=== PATIENT | male | born 1965 | race Hispanic/Latino ===

== ENCOUNTER → 2017-06-25 | Day surgery (SDC) | payer OTHER ==
[2017-06-20 12:50] LABS: BASOPHILS # (AUTO) 0.1 (0.0-0.1); BASOPHILS % 0.7 % (0.0-1.0); EOSINOPHILS # (AUTO) 0.3 (0.0-0.4); EOSINOPHILS % 3.3 % (0.0-6.0); HEMATOCRIT 44.4 % (38.2-49.6); HEMOGLOBIN 15.7 g/dL (14.0-18.0); LYMPHOCYTES # (AUTO) 3.4 (1.0-3.2); LYMPHOCYTES % 34.9 % (18.0-39.1); MEAN CORPUSCULAR HEMOGLOBIN 31.2 pg (28-32); MEAN CORPUSCULAR HGB CONC 35.4 g/dL (31-35); MEAN CORPUSCULAR VOLUME 88.3 fL (81-99); MONOCYTES # (AUTO) 1.2 (0.2-0.8); MONOCYTES % 12.2 % (4.4-11.3); NEUTROPHILS # (AUTO) 4.7 (2.1-6.9); NEUTROPHILS % 48.6 % (38.7-80.0); PLATELET COUNT 366 x10e3/uL (140-360); RED BLOOD COUNT 5.03 x10e6/uL (4.3-5.7); RED CELL DISTRIBUTION WIDTH 13.5 % (11.7-14.4)
[2017-06-20 13:16] LABS: ANION GAP 12.6 mmol/L (8-16); BLOOD UREA NITROGEN 11 mg/dL (7-26); BUN/CREATININE RATIO 14 (6-25); CARBON DIOXIDE 25 mmol/L (22-29); CHLORIDE 107 mmol/L (98-107); CREATININE, SERUM 0.81 mg/dL (0.72-1.25); EST GLOMERULAR FILTRATION RATE > 60 ML/MIN (60-); GLUCOSE 97 mg/dL (74-118); POTASSIUM 4.6 mmol/L (3.5-5.1); SODIUM 140 mmol/L (136-145)
[~2017-06-25] MED LIST: ATORVASTATIN CA20 MG; BUPIVACAINE 0.25%/EPI 30ML SDV INJ ONE; CEFAZOLIN SOD 1 GM/NS 50ML 50 ML IV ONE; DEXAMETHASONE SOD PHOS INJ 4 MG/ML VIAL IV ONE; FENTANYL CITRATE/PF 100MCG/2 ML INJ ONE; LIDOCAINE HCL 2% LOCAL INJ 5 ML SDV VIAL INJ ONE; MIDAZOLAM HCL 2 MG/2 ML VIAL ONE; ONDANSETRON HCL INJ 2 MG/ML VIAL IV ONE; PRAVASTATIN SOD40 MG PO; PROPOFOL IV EMULSION 10 MG/ML 20 ML VIAL IV ONE; SEVOFLURANE INHAL SOLN 250 ML PEN BTL INH ONE; SYNTHROID150 MCG PO
--- NOTE | 2017-06-25 13:04 | Operative Report ---
DATE OF PROCEDURE: June 25, 2017 PREOPERATIVE DIAGNOSIS: Bilateral inguinal hernias. POSTOPERATIVE DIAGNOSIS: Bilateral inguinal hernias. PROCEDURE PERFORMED: Staged repair of bilateral inguinal hernias starting with the right side first, symptomatic. ANESTHESIA: General. ESTIMATED BLOOD LOSS: Minimal. DRAINS: None. COMPLICATIONS: None. ELEMENTARY SCHOOL DIRECTOR: OLESYA Fowler INDICATIONS AND FINDINGS: This patient is a 51-year-old male who had been complaining of pain in the right groin for several years, now becoming tender. Physical examination revealed bilateral groin hernias with the right side being larger than the left and symptomatic. INTRAOPERATIVE FINDINGS: A large direct defect with a blowout of the floor. No evidence of femoral herniation. No evidence of hernia sac. The UltraPro hernia system oval type was placed. DESCRIPTION OF PROCEDURE: With the patient lying on the operative table in the supine position, after administration of general anesthesia, he was prepped and draped for repair of a right inguinal hernia. Preemptive anesthesia was given with 0.25% Marcaine with epinephrine as an ilioinguinal nerve block and an incisional nerve block. A transverse groin incision was made, deepened through the skin, subcutaneous tissue, Indu fascia until the external oblique aponeurosis was identified. This was incised along the course of its fibers, transecting the external inguinal ring. Medial and lateral leaves were developed. The cord was mobilized at the level of the pubic tubercle and retracted away from the operative field by a Melvin drain. The cremaster veil was incised. An indirect hernia sac was not seen. A large direct defect with a blowout of the floor was obvious. It was sharply from the cord. Then the transversalis fascia was incised. Then the preperitoneal space was entered. A pocket was created using blunt dissection to accommodate the mesh. Then the UltraPro hernia system oval type was deployed with the underlay part of the mesh over the direct space and the overlay part of the mesh over the inguinal canal floor. A slit was made to accommodate the cord, and the mesh was secured to local tissues using a series of interrupted 2-0 Ethibond sutures. The wound was irrigated. Bleeding points were cauterized. Then the wound was closed in layers using 2-0 Vicryl for the external oblique aponeurosis, 2-0 catgut for the soft tissues, and the skin was closed using dc. Marcaine 0.25% with epinephrine was given to the skin incision in addition to the previously given local field block, for a total of 30 mL of Marcaine with epinephrine. Job#: [id number] EV
== END | disposition home or self-care (01) ==
LOC: OR 06:53
PROVIDERS: ATTEND Surgery
DX: K40.20 Bilateral inguinal hernia, without obstruction or gangrene, not specified as recurrent (principal); E03.9 Hypothyroidism, unspecified; Z01.810 Encounter for preprocedural cardiovascular examination; Z01.812 Encounter for preprocedural laboratory examination; Z85.71 Personal history of Hodgkin lymphoma; Z87.891 Personal history of nicotine dependence
CPT/HCPCS: 36415; 49505; 80048; 85025; 93005; C1781; J1100; J2001; J2250; J2405

== ENCOUNTER → 2017-07-18 | Day surgery (SDC) | payer OTHER ==
[~2017-07-18] MED LIST changes: +BUPIVACAINE 0.25% 30ML SDV INJ ONE; -BUPIVACAINE 0.25%/EPI 30ML SDV INJ ONE; -CEFAZOLIN SOD 1 GM/NS 50ML 50 ML IV ONE; -DEXAMETHASONE SOD PHOS INJ 4 MG/ML VIAL IV ONE; +DEXAMETHASONE SOD PHOS INJ 4 MG/ML VIAL ONE; +KETOROLAC TROMETHAMINE 30 MG/ML VIAL ONE; -ONDANSETRON HCL INJ 2 MG/ML VIAL IV ONE; +ONDANSETRON HCL INJ 2 MG/ML VIAL ONE; -PROPOFOL IV EMULSION 10 MG/ML 20 ML VIAL IV ONE; +PROPOFOL IV EMULSION 10 MG/ML 20 ML VIAL ONE; -SEVOFLURANE INHAL SOLN 250 ML PEN BTL INH ONE; +SEVOFLURANE INHAL SOLN 250 ML PEN BTL ONE
--- NOTE | 2017-07-18 09:50 | Operative Report ---
DATE OF PROCEDURE: July 18, 2017 PREOPERATIVE DIAGNOSIS: Left inguinal hernia. POSTOPERATIVE DIAGNOSIS: Left inguinal hernia. PROCEDURE PERFORMED: Repair of left inguinal hernia with Ultra Pro hernia system, oval type. BANDER AND CELLOPHANER HELPER MACHINE: OLESYA Fowler ESTIMATED BLOOD LOSS: Minimal. DRAINS: None. COMPLICATIONS: None. INDICATIONS AND FINDINGS: The patient is a 51-year-old male who is admitted now for completion of staged repair of bilateral inguinal hernia. He had repair of right inguinal hernia several weeks ago. INTRAOPERATIVE FINDINGS: Direct defect. DESCRIPTION OF PROCEDURE: With the patient lying on the operating table in the supine position and after administration of general anesthesia, he was prepped and draped for repair of a left inguinal hernia. Pre-emptive anesthesia was given and 0.25% Marcaine with epinephrine as an ilioinguinal nerve block and incisional nerve block. A transverse groin incision was made and deepened through the skin, subcutaneous tissue and Indu fascia until the external oblique aponeurosis was identified. This was incised along the course of the fibers transecting the external inguinal ring. Mid and lateral leads were developed. The cord was mobilized at the level of the pubic tubercle and retracted away from the operative field by a Laura drain. The cremaster veil was incised. An indirect hernia sac was searched for and none was found. The direct defect was seen. The transversalis fascia was incised. Then a pocket was created with blunt dissection to accommodate the Ultra Pro hernia system oval type mesh. The mesh was deployed with the underlay part of the mesh over the direct space and the overlay part of the mesh over the inguinal canal floor. A slit was made to accommodate the cord. Then the mesh was secured to local tissues using a series of interrupted 2 Ethibond suture. The wound was irrigated. Bleeding points were cauterized. Then the wound was closed in layers using 2-0 Vicryl for the external oblique aponeurosis, 2-0 plain catgut for the soft tissues, and the skin was closed using dc. Then 0.25% Marcaine with epinephrine was given as a local block at the end of the case. The patient tolerated the procedure well, and taken to the recovery room in stable condition. Job#: [id number] RI
== END | disposition home or self-care (01) ==
LOC: OR 06:30
PROVIDERS: ATTEND Surgery
DX: K40.90 Unilateral inguinal hernia, without obstruction or gangrene, not specified as recurrent (principal); E78.5 Hyperlipidemia, unspecified; R06.83 Snoring; E03.9 Hypothyroidism, unspecified; Z85.72 Personal history of non-Hodgkin lymphomas; Z87.891 Personal history of nicotine dependence
CPT/HCPCS: 49505; C1781; J1100; J1885; J2001; J2250; J2405

== ENCOUNTER → 2017-11-29 | Day surgery (SDC) | payer BC ==
[~2017-11-29] MED LIST changes: -BUPIVACAINE 0.25% 30ML SDV INJ ONE; -DEXAMETHASONE SOD PHOS INJ 4 MG/ML VIAL ONE; +HYOSCYAMINE SULFATE 0.5 MG/ML AMP ONE; -KETOROLAC TROMETHAMINE 30 MG/ML VIAL ONE; -LIDOCAINE HCL 2% LOCAL INJ 5 ML SDV VIAL INJ ONE; -MIDAZOLAM HCL 2 MG/2 ML VIAL ONE; +MIDAZOLAM HCL 5MG/ML 2ML VIAL ONE; -ONDANSETRON HCL INJ 2 MG/ML VIAL ONE; -PROPOFOL IV EMULSION 10 MG/ML 20 ML VIAL ONE; +PROPOFOL IV EMULSION 10 MG/ML 50 ML VIAL ONE; -SEVOFLURANE INHAL SOLN 250 ML PEN BTL ONE
--- NOTE | 2017-11-29 14:55 | Operative Report ---
DATE OF PROCEDURE: November 29, 2017 REFERRING PHYSICIAN: Dr. Dawit Morrison. PROCEDURE PERFORMED: Colonoscopy and polypectomy. INDICATIONS FOR COLONOSCOPY: Colorectal cancer screening. MEDICATION: Patient was done under MAC. Please see anesthesiologist's note. PROCEDURE: With patient in the left lateral decubitus position, flexible fiberoptic Olympus colonoscope was inserted into the rectum with ease and advanced all the way to the cecum. One polyp was hot biopsied from the cecum. Polypectomy site was prophylactically hemoclipped. The ascending colon appeared to be within normal limits. Three polyps were hot biopsied. Two polyps were snared from the transverse colon. One polyp that was sessile suspicious for carcinoid tumor was snared from the descending colon and polypectomy site was tattooed. The rest of the descending appeared to be within normal limits. Two polyps were snared from the sigmoid colon. The rectum appeared to be within normal limits. The scope was then retroflexed into the distal rectum and small internal hemorrhoids were noted, none of which was actively bleeding. The scope was then straightened out and was subsequently withdrawn. Patient tolerated the procedure well. IMPRESSION: 1. Cecal polyps, hot biopsied, prophylactically hemoclipped. 2. Transverse colon polyps times 5. Two snared and 3 hot biopsied. 3. Descending colon polyp snared and tattooed. Rule out carcinoid. 4. Sigmoid colon polyps times 2 snared. 5. Internal hemorrhoids, none actively bleeding. PLAN: Follow up histology. Initiate high-fiber, low-fat diet. Initiate high-fiber supplement. Patient will need a followup colonoscopy in 1 to 2 years. A total of 9 polyps were removed. Job#: [id number] cc:DAWIT MORRISON MD
== END | disposition home or self-care (01) ==
LOC: OR 12:13
PROVIDERS: ATTEND Internal Medicine Gastroenterology
DX: K62.5 Hemorrhage of anus and rectum (principal); D12.0 Benign neoplasm of cecum; K64.8 Other hemorrhoids; K64.9 Unspecified hemorrhoids; R03.0 Elevated blood-pressure reading, without diagnosis of hypertension; Z01.810 Encounter for preprocedural cardiovascular examination; Z68.25 Body mass index [BMI] 25.0-25.9, adult; Z88.5 Allergy status to narcotic agent; Z85.72 Personal history of non-Hodgkin lymphomas
CPT/HCPCS: 45381; 45384; 45385; 93005; J1980; J2250; 45378

== ENCOUNTER → 2019-03-27 | Day surgery (SDC) | payer BC ==
[~2019-03-27] MED LIST changes: +GLUCAGON FOR INJ 1 MG VIAL ONE; +HYOSCYAMINE 0.125 MG TAB ONE; -HYOSCYAMINE SULFATE 0.5 MG/ML AMP ONE; +KETAMINE HCL INJ 50 MG/ML 10 ML VIAL ONE; +LEVOTHYROXINE175 MCG PO; +MIDAZOLAM HCL 2 MG/2 ML VIAL ONE; -MIDAZOLAM HCL 5MG/ML 2ML VIAL ONE
[2019-03-27 12:15] VITALS: BP 112/73
[2019-03-27 12:47] LABS: ALANINE AMINOTRANSFERASE 50 IU/L (0-55); ALBUMIN 3.7 g/dL (3.5-5.0); ALBUMIN/GLOBULIN RATIO 1.1 (0.8-2.0); ALKALINE PHOSPHATASE 90 IU/L (40-150); BLOOD UREA NITROGEN 16 mg/dL (7-26); BUN/CREATININE RATIO 19 (6-25); CALCIUM 9.3 mg/dL (8.4-10.2); CARBON DIOXIDE 25 mmol/L (22-29); CHLORIDE 103 mmol/L (98-107); CREATININE, SERUM 0.84 mg/dL (0.72-1.25); EST GLOMERULAR FILTRATION RATE > 60 ML/MIN (60-); GLUCOSE 98 mg/dL (74-118); SODIUM 135 mmol/L (136-145)
--- NOTE | 2019-03-27 14:59 | Operative Report ---
DATE OF PROCEDURE: 03/27/2019 SURGEON: Suleiman Alanis MD PROCEDURES: 1. Esophagogastroduodenoscopy with biopsies and esophageal dilatation. 2. Colonoscopy with polypectomy and biopsies. INDICATIONS FOR EGD: 1. Dysphagia. 2. History of melena. INDICATIONS FOR COLONOSCOPY: 1. Lower abdominal pain. 2. The patient with history of colon polyps. MEDICATIONS: The patient was done under MAC, please see anesthesiologist's note. PROCEDURE IN DETAIL: With the patient in left lateral decubitus position, a flexible fiberoptic Olympus gastroscope was introduced into the esophagus under direct visualization without any difficulty. Grade 1 esophageal varices were noted in the esophagus without active bleeding or stigmata of recent hemorrhage. A minute tongue of velvety red mucosa was noted to extend proximally from the GE junction and that was biopsied. A Schatzki ring was noted and that was dilated to size 52-Namibian Hyde. The scope was then advanced with ease into the stomach traversing a small sliding hiatal hernia. Mucosa overlying the antrum and the body revealed some patchy erythema and [id number] edema. Biopsies were obtained and sent it to stain for H pylori. Two hyperplastic-appearing polyps were noted in the body of the stomach and those were partially excised with the cold biopsy forceps. The pylorus was intubated with ease and the scope was advanced all the way to the second portion of the duodenum. Biopsies were obtained from the second portion and duodenal bulb to rule out sprue. The scope was then withdrawn back into the stomach and retroflexed and mucosa overlying the fundus and cardia appeared to be within normal limits. The scope was then straightened out, it was subsequently withdrawn. The patient tolerated the procedure well. IMPRESSION: 1. Grade 1 esophageal varices. 2. Rule out Gordon esophagus. 3. Schatzki ring dilated to size 52-Namibian Hyde. 4. Small sliding hiatal hernia. 5. Gastritis, biopsied, biopsy sent to stain for Helicobacter pylori. 6. Gastric polyps, body, partially excised with cold biopsy forceps. 7. Rule out sprue. PLAN: Follow up histology. Initiate Protonix 40 mg one p.o. q.a.m. before meals. Check liver function test. We will obtain ultrasound of the liver. The patient was then turned around after adequate lubrication of the anal canal. A flexible fiberoptic Olympus colonoscope was inserted into the rectum with ease and advanced all the way to the cecum. Two minute polyps were removed per the cold biopsy forceps from the cecum. The ascending colon, transverse colon grossly appeared to be within normal limits. Minimal early diverticular disease was noted in the descending colon, and approximately 5 polyps were removed from the descending colon, three per cold snare polypectomy and two per hot snare polypectomy. The previously tattooed side in the distal descending colon was biopsied. A minute polyp was hot biopsied from the proximal rectum. The scope was then retroflexed into the distal rectum. Evidence of previous hemorrhoidectomy was noted. There was some small internal hemorrhoids, none of which was actively bleeding. The scope was then straightened out, it was subsequently withdrawn. The patient tolerated the procedure well. IMPRESSION: 1. Cecal polyps x2, removed per cold biopsy forceps. 2. Descending colon polyps x5, two hot snared and three cold snared. 3. Previously tattooed area in the distal descending colon, biopsied. 4. Diverticulosis, minimal. 5. Rectal polyp, hot biopsied. 6. Internal hemorrhoids, none actively bleeding. PLAN: 1. Follow up histology. 2. Initiate high-fiber, low-fat diet. 3. Initiate high-fiber supplement. 4. Start Visbiome one p.o. b.i.d. 5. The patient might benefit from a followup colonoscopy in 3 years. Suleiman Alanis MD [facility] [place] [place] /[id number] cc: Dawit Morrison MD
== END | disposition home or self-care (01) ==
LOC: OR 07:03
PROVIDERS: ATTEND Internal Medicine Gastroenterology
DX: K29.70 Gastritis, unspecified, without bleeding (principal); D12.0 Benign neoplasm of cecum; D12.4 Benign neoplasm of descending colon; D12.8 Benign neoplasm of rectum; K31.7 Polyp of stomach and duodenum; K22.2 Esophageal obstruction; I85.00 Esophageal varices without bleeding; K22.8 Other specified diseases of esophagus; K44.9 Diaphragmatic hernia without obstruction or gangrene; B96.81 Helicobacter pylori [H. pylori] as the cause of diseases classified elsewhere; K57.30 Diverticulosis of large intestine without perforation or abscess without bleeding; K64.8 Other hemorrhoids; Z88.6 Allergy status to analgesic agent; Z85.72 Personal history of non-Hodgkin lymphomas
CPT/HCPCS: 36415; 43239; 43450; 45380; 45384; 45385; 80053; 93005; J1610; J2250; J2704; J3010